=== PATIENT | male | born 1955 | race Caucasian/White ===

== ENCOUNTER 2024-11-19 16:39 | Emergency (ER) | payer MEDICARE ==
[2024-11-19 17:37] LABS: BASOPHILS ABSOLUTE AUTO 0.1 K/mm3 (0.0-0.2); BASOPHILS PERCENT AUTO 0.6 % (0.0-1.0); EOSINOPHILS ABSOLUTE AUTO 0.1 K/mm3 (0.0-0.4); EOSINOPHILS PERCENT AUTO 1.0 % (0.0-6.0); IMMATURE GRAN ABSOLUTE AUTO 0.02 K/mm3 (0.00-0.05); IMMATURE GRAN PERCENT AUTO 0.3 % (0.0-0.4); LYMPHOCYTES ABSOLUTE AUTO 2.0 K/mm3 (1.0-4.8); LYMPHOCYTES PERCENT AUTO 25.2 % (24.0-44.0); MEAN PLATELET VOLUME 9.2 fl (9.4-12.4); MONOCYTES ABSOLUTE AUTO 0.7 K/mm3 (0.0-0.8); MONOCYTES PERCENT AUTO 9.1 % (0.0-8.0); NEUTROPHILS ABSOLUTE AUTO 5.1 K/mm3 (1.8-7.7); NEUTROPHILS PERCENT AUTO 63.8 % (41.0-71.0); NRBC ABSOLUTE 0.00 (0.00-0.02); NRBC PERCENT 0.0 % (0.0-0.2); PLATELET COUNT,PLT 235 K/mm3 (150-400); RED BLOOD CELL COUNT 5.22 M/mm3 (4.52-5.90); WHITE BLOOD CELL COUNT,WBC 7.95 K/mm3 (3.9-11.3)
[2024-11-19 18:00] LABS: A/G RATIO 1.2 (1-2); ALANINE AMINOTRANSFERASE,ALT 30.0 U/L (16-63); ASPARTATE AMNIOTRANSFERASE,AST 22.0 U/L (15-37); BILIRUBIN TOTAL 0.7 mg/dL (0.2-1.0); BLOOD UREA NITROGEN,BUN 23.0 mg/dL (7-18); CARBON DIOXIDE,CO2 28.0 mEq/L (21-32); CHLORIDE,CL 104.0 mEq/L (98-107); CREATININE 1.2 mg/dL (0.7-1.3); EST CRCL DRUG DOSING (CG) 74.34 mL/min; ESTIMATED GFR 67.0 mL/min (>60); GLUCOSE RANDOM 86.0 mg/dL (70-99); POTASSIUM,K 3.9 mEq/L (3.5-5.1); PROTEIN TOTAL,TP 7.4 g/dl (6.4-8.2); SODIUM,NA 140.0 mEq/L (136-145); TROPONIN I HIGH SENSITIVITY 17.0 pg/mL (<=76)
== END 2024-11-19 19:20 | disposition home or self-care (01) ==
LOC: JD.ED 16:39
DX: R51.9 Headache, unspecified (principal); I10 Essential (primary) hypertension; E78.00 Pure hypercholesterolemia, unspecified; Z79.82 Long term (current) use of aspirin; Z79.899 Other long term (current) drug therapy
CPT/HCPCS: 36415; 70450; 80053; 84484; 85025; 93005; 99284; A9270; 93010; 99283